=== PATIENT | female | born 1945 | race Caucasian/White ===

== ENCOUNTER 2018-09-30 16:59 | Emergency (ER) | payer MEDICARE, OTHER ==
[2018-09-30] MEDS ORDERED: Ketorolac 30 MG/ML SDV IM ONE (17:01)
[2018-09-30] MEDS ORDERED: HYDROmorphone 2 MG/ML SDV IM ONE (17:02)
--- NOTE | 2018-09-30 17:07 | EDM.PDOC ---
ED HPI GENERAL MEDICAL PROBLEM - General Time Seen by Provider: 09/30/18 17:00 Source of Information: Reports: Patient History Limitations: Reports: No Limitations - History of Present Illness INITIAL COMMENTS - FREE TEXT/NARRATIVE: According to patient, she has had sciatica for a long time. She take methocarbamol 1500 3 times daily for it. Apparently she could not fill it up on Monday, as she was in the court whole day. Her right leg pain has got worse over the week end. . She has been doing her sciatica exercises and not better. No tingling or numbness in the right lower extremity. Rates her pain at 9/10. No incontinence of urine or stool. No saddle numbness. Onset Date: 09/28/18 Location: Reports: Lower Extremity, Right Severity: Severe Improves with: Reports: None Worsens with: Reports: None Associated Symptoms: Denies: Confusion, Chest Pain, Cough, Diaphoresis, Fever/ Chills, Headaches, Nausea/Vomiting, Rash, Seizure, Shortness of Breath, Syncope , Weakness - Related Data Allergies Allergy/AdvReac Type Severity Reaction Status Date / Time No Known Allergies Allergy Verified 09/30/18 17:00 ED ROS GENERAL - Review of Systems Review Of Systems: See Below Constitutional: Denies: Fever, Chills HEENT: Denies: Rhinitis, Throat Pain, Throat Swelling Respiratory: Denies: Shortness of Breath, Pleuritic Chest Pain, Cough, Sputum Cardiovascular: Denies: Chest Pain, Lightheadedness GI/Abdominal: Denies: Abdominal Pain, Nausea, Vomiting Musculoskeletal: Reports: Leg Pain, Muscle Pain. Denies: Joint Pain, Joint Swelling, Muscle Stiffness Skin: Denies: Bruising, Pruritis, Rash ED EXAM, GENERAL - Physical Exam Exam: See Below Exam Limited By: No Limitations General Appearance: Alert, WD/WN, No Apparent Distress Eye Exam: Bilateral Eye: EOMI, PERRL Ears: Normal External Exam, Normal Canal, Hearing Grossly Normal, Normal TMs Ear Exam: Bilateral Ear: Auricle Normal, Canal Normal, TM normal Nose: Normal Inspection, Normal Mucosa, No Blood Throat/Mouth: Normal Inspection, Normal Lips, Normal Teeth, Normal Gums, Normal Oropharynx, Normal Voice, No Airway Compromise Head: Atraumatic, Normocephalic Neck: Normal Inspection, Supple, Non-Tender, Full Range of Motion Respiratory/Chest: No Respiratory Distress, Lungs Clear, Normal Breath Sounds, No Accessory Muscle Use, Chest Non-Tender Cardiovascular: Normal Peripheral Pulses, Regular Rate, Rhythm, No Edema, No Gallop, No JVD, No Murmur, No Rub GI/Abdominal: Normal Bowel Sounds, Soft, Non-Tender, No Organomegaly, No Distention, No Abnormal Bruit, No Mass Extremities: Other (right lower extremity: SLR is 60 degree. Tender over the lower buttock. no weknessinthe leg or foot. able to walk withwalker.) Neurological: Alert, Oriented, CN II-XII Intact, Normal Cognition, Normal Gait, Normal Reflexes, No Motor/Sensory Deficits Skin Exam: Warm Course - Vital Signs Text/Narrative:: Pt has not had her methocarbamol for past 2 days now and now having worsening right sciatic pain. Rates her pain at 9/10.No Neurological deficits. She did received toradol 30mg and dilaudid 1mg Im. Also I have given her methocarbamol 500mg 3 tabs 3 times daily # 15 tablets. advised her to go to pharmacy and refill her meds tomorrow. - Orders/Labs/Meds Orders: Active Orders 24 hr Category Date Time Status HYDROmorphone [Dilaudid] Med 09/30/18 17:02 Once 1 mg IM ONETIME ONE Ketorolac [Toradol] Med 09/30/18 17:01 Once 30 mg IM ONETIME ONE Departure - Departure Time of Disposition: 17:15 Disposition: Home, Self-Care 01 Condition: Fair Clinical Impression: Sciatica - Discharge Information *PRESCRIPTION DRUG MONITORING PROGRAM REVIEWED*: Not Applicable *COPY OF PRESCRIPTION DRUG MONITORING REPORT IN PATIENT TOSHIA: Not Applicable - Problem List & Annotations (1) Sciatica SNOMED Code(s): 93821454 Code(s): M54.30 - SCIATICA, UNSPECIFIED SIDE Status: Acute - Problem List Review Problem List Initiated/Reviewed/Updated: Yes - My Orders Last 24 Hours: My Active Orders 09/30/18 17:01 Ketorolac [Toradol] 30 mg IM ONETIME ONE 09/30/18 17:02 HYDROmorphone [Dilaudid] 1 mg IM ONETIME ONE - Assessment/Plan Last 24 Hours: My Active Orders 09/30/18 17:01 Ketorolac [Toradol] 30 mg IM ONETIME ONE 09/30/18 17:02 HYDROmorphone [Dilaudid] 1 mg IM ONETIME ONE Assessment:: Right sciatica Plan: Pt has not had her methocarbamol for past 2 days now and now having worsening right sciatic pain. Rates her pain at 9/10.No Neurological deficits. She did received toradol 30mg and dilaudid 1mg Im. Also I have given her methocarbamol 500mg 3 tabs 3 times daily # 15 tablets. advised her to go to pharmacy and refill her meds tomorrow.
[2018-09-30] MEDS ORDERED: Methocarbamol 500 MG Tab ONE (17:20)
== END 2018-09-30 17:35 | disposition home or self-care (01) ==
LOC: LB.ED 16:59
DX: M54.31 Sciatica, right side (principal)
CPT/HCPCS: 96372; 99283-25; A9270-GY; J1170; J1885

== ENCOUNTER 2018-10-14 16:47 | Emergency (ER) | payer MEDICARE, OTHER ==
[2018-10-14] MEDS ORDERED: Gabapentin 300 MG Cap PO ONE (16:50)
[2018-10-14] MEDS ORDERED: Gabapentin 300 MG Cap ONE (17:00)
--- NOTE | 2018-10-14 20:41 | ER ---
HISTORY OF PRESENT ILLNESS: A 73-year-old lady here with complaints of pain down the posterior aspect and lateral aspect of the right leg. She thinks it is sciatica-type pain. The patient tells me she has had this pain for a couple of weeks. She was diagnosed with shingles and has started on Valtrex, which she is taking t.i.d. She was initially for this same type of pain 2 weeks ago. She was given pain medicine I think Dilaudid and Toradol. She states it did not help. She has also been trying prednisone the last 3 days taking 40 mg a day. She does not feel this is helping much either. She has not had any falls or injuries recently and she denies any back pain. OBJECTIVE: GENERAL APPEARANCE: The patient is awake and alert. No obvious distress. VITAL SIGNS: Reviewed as listed. EXTREMITIES: Examining the patient's right leg reveals there is still some remnants of the shingles rash present on the lateral and lateral-posterior side of the right thigh radiating down to just below the knee on the posterior side. The skin in this area is just slightly tender with palpation. The patient feels most comfortable if she crosses her right leg over her left leg. She states that when she stands and walks, the pain can be quite severe. DIAGNOSIS: Neuralgia. I do believe, this is connected with her recent shingles outbreak. TREATMENT PLAN: Neurontin will be started. I will start her on 300 mg 1 capsule tonight, 1 capsule b.i.d. tomorrow, and then t.i.d. dosing giving her enough for 10 days. The patient is to continue with prednisone 1 more day and then stop it. I do want her to follow up in the clinic next week within a couple of days if she is not noticing significant improvement, if she is feeling significantly better, recheck should be towards the end of the week. Activity should be as tolerated. CRS/MODL /[id number]
== END 2018-10-14 17:06 | disposition home or self-care (01) ==
LOC: LB.ED 16:47
DX: M79.2 Neuralgia and neuritis, unspecified (principal); B02.9 Zoster without complications
CPT/HCPCS: 99283; A9270-GY

== ENCOUNTER 2018-10-23 11:09 | Observation (INO) | payer MEDICARE, OTHER ==
[2018-10-23] MEDS ORDERED: Sodium Chloride 0.9% 10 ML Syringe FLUSH PRN (11:41)
[2018-10-23] MEDS ORDERED: Morphine 2 MG/ML Syringe IVPUSH PRN (11:42)
[2018-10-23] MEDS ORDERED: Gabapentin 300 MG Cap PO PRN (11:43)
[2018-10-23] MEDS ORDERED: Methocarbamol 750 MG Tab PO PRN (11:43)
[2018-10-23] MEDS ORDERED: methylPREDNISolone Sodium Succinate 125 MG/2 ML SDV IVPUSH SCH (11:45)
[2018-10-23] MEDS ORDERED: Ondansetron 4 MG Tab.DIS PO PRN (11:49)
--- NOTE | 2018-10-23 11:49 | PCM.HP ---
H&P History of Present Illness - General Date of Service: 10/23/18 Admit Problem/Dx: Admission Diagnosis/Problem Admission Diagnosis/Problem Piriformis syndrome of right side Source of Information: Patient History Limitations: Reports: No Limitations - History of Present Illness Initial Comments - Free Text/Narative: is a 73yo F here for right leg pain. She has had severe pain for the past week and has been to the ER and placed on multiple medications without much improvement. She states the gabapentin may have helped but she is not sure as the pain continues. The pain is exacerbated by walking and movement of the right leg. She states it sometimes starts in the buttocks or feels like it shoots up from the lower leg. There are concerns if it is Sciatica vs Piriformis syndrome or Post herpetic neuralgia. Patient has been unable to be at home by herself as she cannot move or walk, she has had to crawl to get to the bathroom. She has been staying with a family member for the past few days without improvement. Her pain is not tolerable and worsening. She has become constipated and has not had a BM in the past few days. She has become nauseated as well. Onset of Symptoms: Reports: Gradual Duration of Symptoms: Reports: Day(s):, Getting Worse Location: Reports: Lower Extremity, Right Quality: Reports: Ache, Stabbing Severity: Severe Improves with: Reports: None Worsens with: Reports: Movement Context: Reports: Activity/Exercise Associated Symptoms: Reports: Nausea/Vomiting - Related Data Allergies/Adverse Reactions: Allergies Allergy/AdvReac Type Severity Reaction Status Date / Time Latex, Natural Rubber Allergy Hives Verified 10/20/18 17:50 Home Medications: Home Meds Colesevelam [Welchol] 625 mg PO DAILY 09/30/18 [History] Insulin Glargine,Hum.Rec.Anlog [Basaglar Kwikpen U-100] 35 units SUBCUT BID [History] Lisinopril 10 mg PO BID 09/30/18 [History] Methocarbamol 1 - 2 tab PO TID PRN 09/30/18 [History] amLODIPine Besylate [Amlodipine Besylate] 10 mg PO DAILY 09/30/18 [History] metFORMIN [Glucophage] 1,000 mg PO BIDMEALS 09/30/18 [History] Gabapentin [Neurontin] 2 cap PO TID PRN 10/20/18 [History] Ibuprofen 3 tab PO BID PRN 10/20/18 [History] Multivitamin [Daily Multiple Vitamin] 1 each PO DAILY 10/20/18 [History] Vit C/E/Zn/Coppr/Lutein/Zeaxan [Preservision Areds 2 Softgel] 1 each PO BID 11/06 [History] traMADol HCl [Tramadol HCl] 1 tab PO QID PRN 10/20/18 [History] Hydrocodone/Acetaminophen [Hydrocodon-Acetaminophn 10-325] 10 tab PO QID PRN 02/03 [History] Pregabalin [Lyrica] 150 mg PO TID 10/23/18 [History] Past Medical History HEENT History: Reports: Macular Degeneration Cardiovascular History: Reports: High Cholesterol, Hypertension Respiratory History: Reports: Other (See Below) Other Respiratory History: R lobectomy r/t breast Ca 2015 [employer] History: Reports: Neurological History: Reports: Other (See Below) Other Neuro History: Sciatica Endocrine/Metabolic History: Reports: IDDM Oncologic (Cancer) History: Reports: Breast, Lung, Other (See Below) Other Oncologic History: Left Mastectomy; Lobectomy - Infectious Disease History Infectious Disease History: Reports: Shingles - Past Surgical History Female Surgical History: Reports: Section Other Female Surgeries/Procedures: c/s x2 Endocrine Surgical History: Reports: None Social & Family History - Family History Family Medical History: Noncontributory - Caffeine Use Caffeine Use: Reports: None H&P Review of Systems - Review of Systems: Review Of Systems: ROS reveals no pertinent complaints other than HPI. Exam - Exam Exam: See Below - Exam General: Alert, Oriented, Cooperative HEENT: PERRLA, Conjunctiva Clear, EACs Clear, EOMI Neck: Supple, Trachea Midline Lungs: Clear to Auscultation, Normal Respiratory Effort Cardiovascular: Regular Rate, Regular Rhythm GI/Abdominal Exam: Normal Bowel Sounds Back Exam: Normal Inspection Extremities: Normal Inspection, Normal Range of Motion, Non-Tender, No Pedal Edema, Normal Capillary Refill Peripheral Pulses: 2+: Dorsalis Pedis (L), Dorsalis Pedis (R) Skin: Warm, Dry, Intact Neurological: Cranial Nerves Intact, Reflexes Equal Bilateral Neuro Extensive - Mental Status: Alert, Oriented x3, Normal Mood/Affect - Problem List (1) Neuralgia, postherpetic SNOMED Code(s): 6216788 ICD Code: B02.29 - OTHER POSTHERPETIC NERVOUS SYSTEM INVOLVEMENT Status: Acute Priority: High Current Visit: Yes (2) Sciatica SNOMED Code(s): 75858627 ICD Code: M54.30 - SCIATICA, UNSPECIFIED SIDE Status: Acute Priority: High Current Visit: Yes Qualifiers: Laterality: right Qualified Code(s): M54.31 - Sciatica, right side Problem List Initiated/Reviewed/Updated: Yes Orders Last 24hrs: Active Orders 24 hr Category Date Time Status Patient Status [ADT] Routine ADT 10/23/18 11:39 Ordered Up With Assistance [RC] ASDIRECTED Care 10/23/18 11:39 Ordered Vital Signs [RC] Q4H Care 10/23/18 11:39 Ordered Regular Diet [DIET] Diet 10/23/18 Dinner Ordered Colesevelam [Welchol] Med 10/24/18 08:00 Ordered 625 mg PO DAILY Gabapentin [Neurontin] Med 10/23/18 11:43 Ordered 2 cap PO TID PRN Insulin Glarg,Human.Rec.Analog [LantUS Solostar] Med 10/23/18 20:00 Ordered 35 units SUBCUT BID Lisinopril [Prinivil] Med 10/23/18 20:00 Ordered 10 mg PO BID Methocarbamol [Robaxin] Med 10/23/18 11:43 Ordered 1 - 2 tab PO TID PRN Morphine Med 10/23/18 11:42 Ordered 2 mg IVPUSH Q4H PRN Multivitamin [Daily Multiple Vitamin] Med 10/24/18 08:00 Ordered 1 each PO DAILY Polyethylene Glycol 3350 [MiraLAX] Med 10/23/18 11:45 Ordered 17 gm PO BID Pravastatin [Pravachol] Med 10/24/18 08:00 Ordered 20 mg PO DAILY Sodium Chloride 0.9% [Saline Flush] Med 10/23/18 11:41 Ordered 10 ml FLUSH ASDIRECTED PRN Vit C/E/Zn/Coppr/Lutein/Zeaxan [Preservision Areds 2 Med 10/23/18 20:00 Ordered Softgel] 1 each PO BID amLODIPine [Norvasc] Med 02/06/19 08:00 Ordered 10 mg PO DAILY metFORMIN [Glucophage] Med 10/23/18 17:00 Ordered 1,000 mg PO BIDMEALS methylPREDNISolone Sod Succ [Solu-MEDROL] Med 10/23/18 11:45 Ordered 125 mg IVPUSH Q12H Peripheral IV Insertion Adult [OM.PC] Routine Oth 10/23/18 11:41 Ordered Resuscitation Status Routine Resus Stat 10/23/18 11:39 Ordered Medication Orders Methylprednisolone Sodium Succinate (Solu-Medrol) 125 mg IVPUSH Q12H K[facility] Morphine Sulfate (Morphine) 2 mg IVPUSH Q4H PRN PRN Reason: Pain Polyethylene Glycol (Miralax) 17 gm PO BID K[facility] Sodium Chloride (Saline Flush) 10 ml FLUSH ASDIRECTED PRN PRN Reason: Keep Vein Open Assessment/Plan Comment:: MRI ordered to rule out pathological processes and concerns of sciatica vs piriformis syndrome vs other. Patient started on IV pain management at this time. Will order PT/OT evaluation.
[2018-10-23] MEDS: methylPREDNISolone Sodium Succinate 125 MG/2 ML SDV IVPUSH SCH ×2 (11:55→23:40)
[2018-10-23] MEDS: Morphine 2 MG/ML Syringe IVPUSH PRN ×4 (11:55→23:43)
[2018-10-23] MEDS: HYDROmorphone 2 MG/ML SDV ONE ×3 (12:40→13:52)
[2018-10-23] MEDS: HYDROmorphone 2 MG/ML Syringe IVPUSH PRN ×3 (12:40→21:10)
[2018-10-23] MEDS: Polyethylene Glycol 3350 Powder 17 GM Packet PO SCH ×2 (14:13→19:17)
[2018-10-23] MEDS ORDERED: HYDROmorphone 2 MG/ML SDV ONE ×2 (16:26→21:05)
[2018-10-23] MEDS ORDERED: metFORMIN 500 MG Tab**OWN MED PO SCH (17:00)
[2018-10-23] MEDS ORDERED: Insulin Detemir 100 Units/ML 3 ML Pen ONE (19:36)
[2018-10-23] MEDS ORDERED: metFORMIN 1,000 MG Tab ONE (19:36)
[2018-10-23] MEDS ORDERED: metFORMIN 1,000 MG Tab PO ONE (20:00)
[2018-10-23] MEDS ORDERED: Lisinopril 10 MG Tab PO ONE (20:00)
[2018-10-23] MEDS ORDERED: Non-Formulary Medication 1 Each (Vit C/E/Zn/Coppr/Lutein/Zeaxan [Preservision Areds 2 Soft PO SCH (20:00)
[2018-10-23] MEDS ORDERED: LISINOPRIL 10 MG PO SCH (20:00)
[2018-10-23] MEDS ORDERED: Insulin Glargine,Human Rec. Analog 100 Units/ML 3 ML Pen SUBCUT ONE (20:00)
[2018-10-23] MEDS ORDERED: INSULIN DETEMIR 100 UNIT/ML SUBCUT SCH (20:00)
[2018-10-24] MEDS: Morphine 2 MG/ML Syringe IVPUSH PRN ×2 (04:08→06:20)
[2018-10-24] MEDS ORDERED: AMLODIPINE 10 MG PO SCH (08:00)
[2018-10-24] MEDS ORDERED: MULTIVITAMIN PO SCH (08:00)
[2018-10-24] MEDS ORDERED: COLESEVELAM 625 MG PO SCH (08:00)
[2018-10-24] MEDS: Polyethylene Glycol 3350 Powder 17 GM Packet PO SCH (11:23)
[2018-10-24] MEDS ORDERED: LORazepam 1 MG Tab ONE (13:45)
[2018-10-24] MEDS ORDERED: Pregabalin 50 MG Cap PO SCH (14:00)
--- NOTE | 2018-10-24 17:10 | PCM.DCSUM1 ---
Discharge Summary - Hospital Course Free Text/Narrative:: Pt was admitted on 10/23/16for pain control, as she has had intractable right lower extremity pain.She has been placed on Dilaudid every 4 hrs and also getting hydrocodone, tramadol with morphine. On today morning visit patient claims that she has very minimal improvement in her pain. On today's visit, I did ask patient to describe the chronology of the pain symptom. She claims that about 3-4 wks ago she started to develop painful papulovesicular rash over the right lower extremity, which started around the lower aspect of her right buttock and spread over the posterior thigh and posterior aspect of the leg and also over the foot. She was seen and treated for shingles. the rash scabbed and stated to clear up. That is when she started to have severe shooting pain over the right lower extremity. The pain is sharp and electric like, radiates form the right buttock into the thigh and leg and resolves. simple things like movement of the extremity or some time clothing triggers the pain. Pain happens anytime of the day and night. last for few seconds and sometimes few minutes. feels tingly in the same areas of the limb. Pt was given gabapentin 200mg 3 times daily for few days and stopped. She did take Lyrica for 2 days and stopped on Monday as she did not notice any improvement in her pain. Her presentation and distribution is typical of postherpetic neuralgia asso with right S1 dermatome. Pt and family was reassured. Also today, she was able to walk with physical therapy about 60 feet using walker. I have clearly explained to patient that the pain might take 3-6 months to gradually improve or it might be permanent pain depending on the nerve regeneration. Discontinued all her pain meds. Have started her on lyrica 50mg 3 times daily for next 3 days and will increase it to 100mg 3 times daily. See the improvement. If pain not better in 2-3 weeks, might need to increase the dose. Meanwhile will discharge patient, as this can be done as outpatient. Family prefer to keep the patient in hospital, and have made decision to go on repsite care. will continue home meds. Brief History: Present iwith intractable right lower extremity pain. Kindly see H&P for details. Diagnosis: Stroke: No - Discharge Data Discharge Date: 10/24/18 (Admit to repsite [facility]) Discharge Disposition: Home, Self-Care 01 Condition: Good - Patient Summary/Data Consults: Consultations 10/23/18 16:32 Consult to Occupational Therapy [OT Evaluation and Treatment] [CONS] Routine Please Evaluate and Treat. OT Reason for Consult: ADL's This query below is only for informational purposes and is not editable. Admission Diagnosis/Problem: Piriformis syndrome of right side Consult to Physical Therapy [PT Evaluation and Treatment] [CONS] Routine Please Evaluate and Treat. PT Reason for Consult: Ambulation This query below is only for informational purposes and is not editable. Admission Diagnosis/Problem: Piriformis syndrome of right side - Patient Instructions Diet: Heart Healthy Diet Fluid Restriction: 1500 mL Activity: As Tolerated - Discharge Plan *PRESCRIPTION DRUG MONITORING PROGRAM REVIEWED*: Not Applicable *COPY OF PRESCRIPTION DRUG MONITORING REPORT IN PATIENT TOSHIA: Not Applicable Home Medications: Home Meds Colesevelam [Welchol] 625 mg PO DAILY 09/30/18 [History] Insulin Glargine,Hum.Rec.Anlog [Basaglar Kwikpen U-100] 35 units SUBCUT BID [History] Lisinopril 10 mg PO BID 09/30/18 [History] amLODIPine Besylate [Amlodipine Besylate] 10 mg PO DAILY 09/30/18 [History] metFORMIN [Glucophage] 1,000 mg PO BIDMEALS 09/30/18 [History] Multivitamin [Daily Multiple Vitamin] 1 each PO DAILY 10/20/18 [History] Vit C/E/Zn/Coppr/Lutein/Zeaxan [Preservision Areds 2 Softgel] 1 each PO BID 11/06 [History] Insulin Glargine,Hum.Rec.Anlog [Lantus Solostar] 35 unit SQ BEDTIME 10/23/18 [ History] Polyethylene Glycol 3350 [MiraLAX] 17 gm PO BID packet 10/24/18 [Rx] - Discharge Summary/Plan Comment DC Time >30 min.: Yes Discharge Summary/Plan Comment: Pt will be on respite care. Kindly use this notes as admission note for respite care admission. - General Info Date of Service: 10/24/18 Functional Status: Reports: Pain Controlled, Tolerating Diet, Ambulating, Urinating, Incentive Spirometry - Review of Systems General: Denies: Fever, Weakness, Fatigue HEENT: Denies: Sinus Congestion, Rhinitis Pulmonary: Denies: Shortness of Breath, Cough, Sputum Cardiovascular: Denies: Chest Pain, Palpitations Gastrointestinal: Denies: Nausea, Vomiting Genitourinary: Denies: Dysuria, Frequency Musculoskeletal: Reports: Leg Pain. Denies: Joint Pain, Joint Swelling Skin: Reports: Rash. Denies: Bruising, Pruritis Neurological: Denies: Confusion, Dizziness, Headache, Syncope - Patient Data Vitals - Most Recent: Last Vital Signs Temp 97.9 F 10/24/18 12:00 Pulse 84 10/24/18 12:00 Resp 18 10/24/18 12:00 BP 148/73 H 10/24/18 12:00 Pulse Ox 99 10/24/18 12:00 Weight - Most Recent: 82.645 kg Lab Results - Last 24 hrs: Laboratory Results - last 24 hr 10/23/18 10/23/18 10/24/18 Range/Units 16:52 18:17 08:13 POC Glucose 222 H 306 H 247 H (74-110) mg/dL 10/24/18 Range/Units 10:43 POC Glucose 180 H (74-110) mg/dL Med Orders - Current: Current Medications Amlodipine Besylate (Norvasc) 10 mg PO DAILY [facility] Last Admin: 10/24/18 11:23 Dose: 10 mg Hydromorphone HCl (Dilaudid) 2 mg IVPUSH Q4H PRN PRN Reason: Pain Last Admin: 10/23/18 21:10 Dose: 2 mg Insulin Detemir (Levemir) 35 unit SUBCUT BID [facility] Last Admin: 10/24/18 11:20 Dose: 35 units Lisinopril (Prinivil) 10 mg PO BID [facility] Last Admin: 10/24/18 11:21 Dose: 10 mg Metformin HCl (Glucophage) 1,000 mg PO BIDMEALS [facility] Last Admin: 10/24/18 08:30 Dose: 1,000 mg Methylprednisolone Sodium Succinate (Solu-Medrol) 125 mg IVPUSH Q12H [facility] Last Admin: 10/23/18 23:40 Dose: 125 mg Morphine Sulfate (Morphine) 2 mg IVPUSH Q2H PRN PRN Reason: Pain Last Admin: 10/24/18 06:20 Dose: 2 mg Colesevelam [Welchol (] 625 MgOwn Med) 625 mg PO DAILY [facility] Last Admin: 10/24/18 08:30 Dose: 625 mg Ondansetron HCl (Zofran Odt) 4 mg PO Q4H PRN PRN Reason: Nausea/Vomiting Polyethylene Glycol (Miralax) 17 gm PO BID [facility] Last Admin: 10/24/18 11:23 Dose: Not Given Pravastatin Sodium (Pravachol) 20 mg PO BEDTIME [facility] Pregabalin (Lyrica) 50 mg PO TID [facility] Last Admin: 10/24/18 13:57 Dose: 50 mg Sodium Chloride (Saline Flush) 10 ml FLUSH ASDIRECTED PRN PRN Reason: Keep Vein Open Discontinued Medications Gabapentin (Neurontin) mg PO TID PRN PRN Reason: Pain Hydromorphone HCl (Dilaudid) Confirm Administered Dose 2 mg .ROUTE .STK-MED ONE Stop: 10/23/18 12:38 Last Admin: 10/23/18 13:52 Dose: Not Given Hydromorphone HCl (Dilaudid) Confirm Administered Dose 2 mg .ROUTE .STK-MED ONE Stop: 10/23/18 16:27 Last Admin: 10/23/18 17:19 Dose: Not Given Hydromorphone HCl (Dilaudid) Confirm Administered Dose 2 mg .ROUTE .STK-MED ONE Stop: 10/23/18 21:06 Last Admin: 10/23/18 21:10 Dose: Not Given Insulin Detemir (Levemir) Confirm Administered Dose 300 unit .ROUTE .STK-MED ONE Stop: 10/23/18 19:37 Last Admin: 10/23/18 19:48 Dose: Not Given Insulin Glargine (Lantus Solostar) 0 units SUBCUT ONETIME ONE Stop: 10/23/18 20:01 Last Admin: 10/23/18 20:59 Dose: 35 units Lisinopril (Prinivil) 10 mg PO ONETIME ONE Stop: 10/23/18 20:01 Last Admin: 10/23/18 19:46 Dose: 10 mg Lorazepam (Ativan) Confirm Administered Dose 1 mg .ROUTE .STK-MED ONE Stop: 10/24/18 13:46 Last Admin: 10/24/18 13:57 Dose: 1 mg Metformin HCl (Glucophage) 1,000 mg PO ONETIME ONE Stop: 10/23/18 20:01 Last Admin: 10/23/18 19:46 Dose: 1,000 mg Metformin HCl (Glucophage) Confirm Administered Dose 1,000 mg .ROUTE .STK-MED ONE Stop: 10/23/18 19:37 Methocarbamol (Robaxin) mg PO TID PRN PRN Reason: Pain Non-Formulary Medication (Multivitamin [Daily Multiple Vitamin]) 1 each PO DAILY [facility] Non-Formulary Medication (Vit C/E/Zn/Coppr/Lutein/Zeaxan [Preservision Areds 2 Softgel]) 1 each PO BID K[facility]RON - Exam General: Reports: Alert, Oriented HEENT: Reports: Pupils Equal, Pupils Reactive, EOMI, Mucous Membr. Moist/[place] Neck: Reports: Supple Lungs: Reports: Clear to Auscultation, Normal Respiratory Effort Cardiovascular: Reports: Regular Rate, Regular Rhythm GI/Abdominal Exam: Normal Bowel Sounds, Soft, Non-Tender, No Organomegaly, No Distention, No Abnormal Bruit, No Mass, Pelvis Stable Extremities: Normal Inspection, Normal Range of Motion, Non-Tender, No Pedal Edema, Normal Capillary Refill Neurological: Reports: Other (right lower extremity:There arehealed small pinkish rash seen over the distribution of S1 dermatome.Incresed sensitivity over the posterior aspect of the thigh and leg to touch.)
[2018-10-24] MEDS ORDERED: Pravastatin 20 MG Tab PO SCH (20:00)
--- NOTE | 2018-10-26 10:52 | MR ---
DATE OF SERVICE: 10/23/2018 CLINICAL DATA: Pain Pelvis and right hip MRI: Vertebral protocol No marrow signal abnormality. No fracture. No evidence of avascular necrosis. 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 there is increased signal within the glenoid labral bilaterally consistent with labral degeneration. I do not see a definite labral tear. There is a small amount of fluid in both hip joints. The soft tissues are unremarkable. The bladder is fluid-filled and moderately distended. There is degenerative disc disease at multiple levels in the lower lumbar spine. There are degenerative changes involving the SI joints bilaterally. No other significant findings. MTDD
== END 2018-10-24 15:00 | disposition other institution (70) ==
LOC: LB.MRI 11:09 → UNDOADMOB 11:13 → LB.MS 11:13
PROVIDERS: ADMIT Family Medicine; ATTEND Family Medicine
DX: B02.29 Other postherpetic nervous system involvement (principal); G57.01 Lesion of sciatic nerve, right lower limb; M51.36 Other intervertebral disc degeneration, lumbar region; E78.00 Pure hypercholesterolemia, unspecified; E11.9 Type 2 diabetes mellitus without complications; I10 Essential (primary) hypertension; Z91.040 Latex allergy status; Z79.4 Long term (current) use of insulin; Z79.899 Other long term (current) drug therapy; Z98.890 Other specified postprocedural states
CPT/HCPCS: 73721-RT; 82962; 96374; 96375; 96376; A9270-GY; G0378; J1170; J2270; J2930

== ENCOUNTER 2018-10-24 12:49 | Inpatient (IN) | payer SELFPAY ==
[2018-10-24] MEDS ORDERED: traMADol 50 MG Tab PO PRN (17:05)
[2018-10-24] MEDS ORDERED: Insulin Glargine,Human Rec. Analog 100 Units/ML 3 ML Pen SUBCUT SCH (20:00)
[2018-10-24] MEDS: Lisinopril 10 MG Tab **OWN MED PO SCH (20:53)
[2018-10-24] MEDS: Lutein/Minerals/Vitamins A, C & E Tab PO SCH (20:53)
[2018-10-24] MEDS: PREGABALIN 50 MG PO SCH (20:53)
[2018-10-24] MEDS: INSULIN GLARGINE U SUBCUT SCH (20:55)
[2018-10-25] MEDS: amLODIPine 10 MG Tab **OWN MED PO SCH (07:38)
[2018-10-25] MEDS: PREGABALIN 50 MG PO SCH ×3 (07:39→19:54)
[2018-10-25] MEDS: Lisinopril 10 MG Tab **OWN MED PO SCH ×2 (07:40→19:50)
[2018-10-25] MEDS: COLESEVELAM 625 MG PO SCH (07:40)
[2018-10-25] MEDS: Lutein/Minerals/Vitamins A, C & E Tab PO SCH ×2 (07:42→19:55)
[2018-10-25] MEDS: INSULIN GLARGINE U SUBCUT SCH ×2 (07:42→19:55)
--- NOTE | 2018-10-25 11:42 | PCM.PN ---
- General Info Date of Service: 10/25/18 Subjective Update: This is a 73yo F here for continued neuropathic pain from her shingles causing a severe post-herpetic neuralgia of the S1 dermatome. Patient still has difficulty getting comfortable and is in Respite care for inability to care for herself due to inability to move well and do routine ADLs. Patient denies any chest pain, no shortness of breath or other concerns. Functional Status: Reports: Tolerating Diet, Other (Patient still has severe pain on weight bearing and positional movements). Denies: Ambulating - Review of Systems General: Reports: No Symptoms HEENT: Reports: No Symptoms Pulmonary: Reports: No Symptoms Cardiovascular: Reports: No Symptoms Gastrointestinal: Reports: No Symptoms Musculoskeletal: Reports: No Symptoms Skin: Reports: No Symptoms Neurological: Reports: Difficulty Walking Psychiatric: Reports: No Symptoms - Patient Data Vitals - Most Recent: Last Vital Signs Temp 36.3 C 10/25/18 08:00 Pulse 71 10/25/18 08:00 Resp 16 10/24/18 13:25 BP 134/80 10/25/18 08:00 Pulse Ox 98 10/25/18 08:00 Weight - Most Recent: 82.554 kg Lab Results Last 24 Hours: Laboratory Results - last 24 hr 10/24/18 10/25/18 Range/Units 16:09 06:37 POC Glucose 145 H 135 H (74-110) mg/dL Med Orders - Current: Current Medications Amlodipine Besylate (Norvasc) 10 mg PO DAILY [facility] Last Admin: 10/25/18 07:38 Dose: 10 mg Duloxetine HCl (Cymbalta) 30 mg PO DAILY [facility] Lisinopril (Prinivil) 10 mg PO BID [facility] Last Admin: 10/25/18 07:40 Dose: 10 mg Metformin HCl (Glucophage) 1,000 mg PO BIDMEALS [facility] Last Admin: 10/25/18 07:41 Dose: 1,000 mg Morphine Sulfate (Morphine) 15 mg PO BID PRN PRN Reason: pain Multivitamins/Minerals (Ocuvite) 1 each PO BID [facility] Last Admin: 10/25/18 07:42 Dose: 1 each Colesevelam (Welchol ) 625 Mg Tab Own Med 0 mg PO DAILY [facility] Last Admin: 10/25/18 07:40 Dose: 625 mg Insulin Glargine ( Basaglar) Kwikpen U- 100 Own Med 0 each SUBCUT BID [facility] Last Admin: 10/25/18 07:42 Dose: 1 each Pregabalin (Lyrica) 50 mg PO TID [facility] Stop: 10/27/18 14:01 Last Admin: 10/25/18 07:39 Dose: 50 mg Pregabalin (Lyrica) 100 mg PO TID [facility] - Exam General: Alert, Oriented, Cooperative HEENT: Pupils Equal, Pupils Reactive, EOMI Neck: Supple Lungs: Clear to Auscultation, Normal Respiratory Effort Cardiovascular: Regular Rate, Regular Rhythm Back Exam: Normal Inspection Extremities: Normal Inspection Peripheral Pulses: 2+: Dorsalis Pedis (L), Dorsalis Pedis (R) Skin: Warm, Dry, Intact - Problem List & Annotations (1) Neuralgia, postherpetic SNOMED Code(s): 0212220 Code(s): B02.29 - OTHER POSTHERPETIC NERVOUS SYSTEM INVOLVEMENT Status: Acute Priority: High Current Visit: Yes - Problem List Review Problem List Initiated/Reviewed/Updated: Yes - My Orders Last 24 Hours: My Active Orders 10/25/18 08:56 Consult to Occupational Therapy [OT Evaluation and Treatment] [CONS] Routine Consult to Physical Therapy [PT Evaluation and Treatment] [CONS] Routine 10/25/18 11:33 Morphine 15 mg PO BID PRN 10/26/18 08:00 DULoxetine [Cymbalta] 30 mg PO DAILY - Plan Plan:: Patient on Lyrica titration and placed on pain management temporarily for comfort. We will d/c pain meds at earliest possible time.
[2018-10-25] MEDS: DULoxetine 30 MG Cap**OWN MED PO SCH (11:58)
[2018-10-25] MEDS: MORPHINE 15 MG PO PRN ×2 (12:45→19:53)
[2018-10-26] MEDS ORDERED: CAPSAICIN TOP PRN (07:23)
[2018-10-26] MEDS: COLESEVELAM 625 MG PO SCH (08:00)
[2018-10-26] MEDS: DULoxetine 30 MG Cap**OWN MED PO SCH (08:01)
[2018-10-26] MEDS: amLODIPine 10 MG Tab **OWN MED PO SCH (08:01)
[2018-10-26] MEDS: PREGABALIN 50 MG PO SCH ×3 (08:02→20:20)
[2018-10-26] MEDS: Lisinopril 10 MG Tab **OWN MED PO SCH ×2 (08:03→20:15)
[2018-10-26] MEDS: INSULIN GLARGINE U SUBCUT SCH ×2 (08:03→20:21)
[2018-10-26] MEDS: Lutein/Minerals/Vitamins A, C & E Tab PO SCH ×2 (08:07→20:00)
--- NOTE | 2018-10-26 13:09 | PCM.SN ---
- Free Text/Narrative Note: Patient has improved symptoms. Discussed continue supportive care and management. Patient will continue current titration of Lyrica for neuralgia. Morphine only as needed.
[2018-10-26] MEDS: MORPHINE 15 MG PO PRN (13:30)
[2018-10-27] MEDS: MORPHINE 15 MG PO PRN ×2 (02:03→13:59)
[2018-10-27] MEDS: COLESEVELAM 625 MG PO SCH (07:50)
[2018-10-27] MEDS: DULoxetine 30 MG Cap**OWN MED PO SCH (07:51)
[2018-10-27] MEDS: amLODIPine 10 MG Tab **OWN MED PO SCH (07:53)
[2018-10-27] MEDS: Lutein/Minerals/Vitamins A, C & E Tab PO SCH ×2 (07:53→20:16)
[2018-10-27] MEDS: PREGABALIN 50 MG PO SCH ×3 (07:53→20:17)
[2018-10-27] MEDS: Lisinopril 10 MG Tab **OWN MED PO SCH ×2 (07:54→20:11)
[2018-10-27] MEDS: INSULIN GLARGINE U SUBCUT SCH ×2 (08:02→20:18)
[2018-10-27] MEDS ORDERED: Ibuprofen 600 MG Tab PO PRN (11:08)
[2018-10-27] MEDS: IBUPROFEN 200 MG PO PRN ×2 (12:14→20:54)
[2018-10-27] MEDS: POLYETHYLENE GLYCOL 17 GM PO PRN (20:20)
[2018-10-28] MEDS: DULoxetine 30 MG Cap**OWN MED PO SCH (07:46)
[2018-10-28] MEDS: COLESEVELAM 625 MG PO SCH (07:46)
[2018-10-28] MEDS: Lisinopril 10 MG Tab **OWN MED PO SCH ×2 (07:47→19:11)
[2018-10-28] MEDS: amLODIPine 10 MG Tab **OWN MED PO SCH (07:47)
[2018-10-28] MEDS: PREGABALIN 50 MG PO SCH ×3 (07:49→19:38)
[2018-10-28] MEDS: Lutein/Minerals/Vitamins A, C & E Tab PO SCH ×2 (07:51→19:10)
[2018-10-28] MEDS: MORPHINE 15 MG PO PRN ×2 (07:53→19:37)
[2018-10-28] MEDS: INSULIN GLARGINE U SUBCUT SCH ×2 (08:03→19:38)
[2018-10-28] MEDS: IBUPROFEN 200 MG PO PRN (19:39)
[2018-10-29] MEDS: IBUPROFEN 200 MG PO PRN ×2 (05:06→16:57)
[2018-10-29] MEDS: MORPHINE 15 MG PO PRN ×2 (08:04→20:20)
[2018-10-29] MEDS: Lisinopril 10 MG Tab **OWN MED PO SCH ×2 (08:04→20:21)
[2018-10-29] MEDS: amLODIPine 10 MG Tab **OWN MED PO SCH (08:05)
[2018-10-29] MEDS: COLESEVELAM 625 MG PO SCH (08:06)
[2018-10-29] MEDS: DULoxetine 30 MG Cap**OWN MED PO SCH (08:06)
[2018-10-29] MEDS: PREGABALIN 50 MG PO SCH ×3 (08:06→20:18)
[2018-10-29] MEDS: Lutein/Minerals/Vitamins A, C & E Tab PO SCH ×2 (08:08→20:18)
[2018-10-29] MEDS: INSULIN GLARGINE U SUBCUT SCH ×2 (08:09→20:19)
[2018-10-30] MEDS: INSULIN GLARGINE U SUBCUT SCH ×2 (07:56→20:28)
[2018-10-30] MEDS: DULoxetine 30 MG Cap**OWN MED PO SCH (08:00)
[2018-10-30] MEDS: COLESEVELAM 625 MG PO SCH (08:00)
[2018-10-30] MEDS: PREGABALIN 50 MG PO SCH ×3 (08:01→20:28)
[2018-10-30] MEDS: Lutein/Minerals/Vitamins A, C & E Tab PO SCH ×2 (08:02→20:31)
[2018-10-30] MEDS: amLODIPine 10 MG Tab **OWN MED PO SCH (08:02)
[2018-10-30] MEDS: Lisinopril 10 MG Tab **OWN MED PO SCH ×2 (08:02→20:28)
[2018-10-30] MEDS: IBUPROFEN 200 MG PO PRN (13:56)
[2018-10-30] MEDS: MORPHINE 15 MG PO PRN (17:16)
[2018-10-30] MEDS: POLYETHYLENE GLYCOL 17 GM PO PRN (17:17)
[2018-10-31] MEDS: IBUPROFEN 200 MG PO PRN (01:48)
[2018-10-31] MEDS: MORPHINE 15 MG PO PRN (05:53)
[2018-10-31] MEDS: COLESEVELAM 625 MG PO SCH (07:45)
[2018-10-31] MEDS: DULoxetine 30 MG Cap**OWN MED PO SCH (07:46)
[2018-10-31] MEDS: amLODIPine 10 MG Tab **OWN MED PO SCH (07:54)
[2018-10-31] MEDS: PREGABALIN 50 MG PO SCH (07:54)
[2018-10-31] MEDS: Lisinopril 10 MG Tab **OWN MED PO SCH (07:55)
[2018-10-31 07:56] VITALS: BP 156/72
[2018-10-31] MEDS: Lutein/Minerals/Vitamins A, C & E Tab PO SCH (08:00)
[2018-10-31] MEDS: INSULIN GLARGINE U SUBCUT SCH (08:03)
== END 2018-10-31 11:15 | disposition home or self-care (01) | DRG 74 ==
LOC: LB.MS 12:49 → UNDOADMIN 12:49 → LB.MS 13:26
PROVIDERS: ADMIT Family Medicine; ATTEND Family Medicine
DX: B02.29 Other postherpetic nervous system involvement (principal); Z75.5 Holiday relief care
CPT/HCPCS: 82962; A9270-GY

== ENCOUNTER 2021-07-16 09:18 | Emergency (ER) | payer MEDICARE, OTHER ==
--- NOTE | 2021-07-16 10:26 | EDM.PDOC ---
ED HPI GENERAL MEDICAL PROBLEM - General Chief Complaint: Respiratory Problem Stated Complaint: COUGH Time Seen by Provider: 07/16/21 10:05 Source of Information: Reports: Patient History Limitations: Reports: No Limitations - History of Present Illness INITIAL COMMENTS - FREE TEXT/NARRATIVE: 75-year-old female presents the ED complaining of a cough/wheeze. Patient had an acute onset of her symptoms starting on Monday. She describes the cough as a dry cough with a wheeze that on Monday became productive with yellow mucus. Patient states the cold air makes it worse especially when she walks her dog. Patient has tried Mucinex without relief. Patient did notice that humidity within her facemask does seem to help her cough. She describes a sensation of feeling it she needs to clear something from her chest. The first time patient has experienced any episodes similar to this. Is been going on for 6 days. Positive for headache secondary to the cough, stuffy nose with clear nasal discharge, pain in her ribs secondary to her cough, mild shortness of breath, patient was a smoker 30 years ago, patient has a lobectomy right upper lobe secondary to cancer. Negative for: Chest pain, trauma, syncope/near syncope, nausea vomiting, dizzy lightheaded, diarrhea constipation, blood in the stool, black tarry stool, bloating, changes to urine color smell frequency volume, no red swollen joints, no rashes. 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) (Mucinex) chest Pain Score (Numeric/FACES): 2 - Related Data Allergies Allergy/AdvReac Type Severity Reaction Status Date / Time Latex, Natural Rubber Allergy Mild Hives Verified 07/16/21 09:45 Home Meds: Home Meds Colesevelam [Welchol] 625 mg PO DAILY 09/30/18 [History] Insulin Glargine,Hum.Rec.Anlog [Basaglar Kwikpen U-100] 35 units SUBCUT BID 09/30/18 [History] Lisinopril 10 mg PO BID 09/30/18 [History] amLODIPine Besylate [Amlodipine Besylate] 10 mg PO DAILY 09/30/18 [History] metFORMIN [Glucophage] 1,000 mg PO BIDMEALS 09/30/18 [History] Multivitamin [Daily Multiple Vitamin] 1 each PO DAILY 10/20/18 [History] Vit C/E/Zn/Coppr/Lutein/Zeaxan [Preservision Areds 2 Softgel] 1 each PO BID 10/20/18 [History] Insulin Glargine,Hum.Rec.Anlog [Lantus Solostar] 35 unit SQ BEDTIME 10/23/18 [History] polyethylene glycoL 3350 [MiraLAX] 17 gm PO BID packet 10/24/18 [Rx] Albuterol/Ipratropium [Combivent Respimat] 4 gm IH TID PRN #1 aer.w.adap 07/16/21 [Rx] predniSONE 60 mg PO DAILY 5 Days #15 tab 07/16/21 [Rx] Past Medical History HEENT History: Reports: Macular Degeneration Cardiovascular History: Reports: High Cholesterol, Hypertension Respiratory History: Reports: Other (See Below) Other Respiratory History: R lobectomy 2016 r/t lung cancer Genitourinary History: Reports: 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: Musculoskeletal History: Reports: Other (See Below) Other Musculoskeletal History: 09/22/18 placed in OBS for severe lower back pain radiating to RLE Neurological History: Reports: Other (See Below) Other Neuro History: Sciatica Endocrine/Metabolic History: Reports: IDDM Oncologic (Cancer) History: Reports: Breast, Lung, Other (See Below) Other Oncologic History: Left Mastectomy (2005); Lobectomy (2015) - Infectious Disease History Infectious Disease History: Reports: Shingles - Past Surgical History Female Surgical History: Reports: Section Other Female Surgeries/Procedures: c/s x2 Endocrine Surgical History: Reports: None Musculoskeletal Surgical History: Reports: None Oncologic Surgical History: Reports: Lobectomy, Mastectomy Social & Family History - Family History Family Medical History: No Pertinent Family History - Tobacco Use Tobacco Use Status *Q: Former Tobacco User Used Tobacco, but Quit: Yes Month/Year Tobacco Last Used: 09/1989 - Caffeine Use Caffeine Use: Reports: Coffee Caffeine Use Comment: 2 cups a day ED ROS GENERAL - Review of Systems Review Of Systems: Comprehensive ROS is negative, except as noted in HPI. ED EXAM, GENERAL - Physical Exam Exam: See Below Free Text/Narrative:: 75-year-old female presented to the ED for cough/wheezing, patient found sitting in bay to on stretcher. Patient is no apparent distress. Occasional runs of coughing. Patient is alert and oriented 3/3, GCS 4 5 6. Speaking in full sentences, no obvious trauma Exam Limited By: No Limitations General Appearance: Alert, WD/WN, No Apparent Distress Eye Exam: Bilateral Eye: Conjunctival Injection (Negative for), EOMI, Normal Inspection, PERRL Ears: Normal External Exam, Normal Canal, Hearing Grossly Normal, Normal TMs Ear Exam: Bilateral Ear: Auricle Normal, Canal Normal, TM normal Nose: Normal Inspection, Normal Mucosa, No Blood, Clear Rhinorrhea Throat/Mouth: Normal Inspection, Normal Lips, Normal Teeth, Normal Gums, Normal Oropharynx, Normal Voice, No Airway Compromise Head: Atraumatic, Normocephalic Neck: Normal Inspection, Supple, Non-Tender, Full Range of Motion. No: Lymphadenopathy (R), Lymphadenopathy (L) Respiratory/Chest: Respiratory Distress (Minor), Wheezing (Wheezing heard in all lung clemente including where she had a lobectomy), Prolonged Expiration. No: Accessory Muscle Use, Retractions Cardiovascular: Normal Peripheral Pulses, Regular Rate, Rhythm, No Edema, No Gallop, No JVD, No Murmur, No Rub GI/Abdominal: Soft, Non-Tender Back Exam: Normal Inspection, Full Range of Motion. No: CVA Tenderness (R), CVA Tenderness (L) Extremities: Normal Inspection, Normal Range of Motion, Non-Tender, Normal Capillary Refill, No Pedal Edema Neurological: Alert, Oriented, Normal Cognition Psychiatric: Normal Affect, Normal Mood Skin Exam: Warm, Dry, Intact, Normal Color, No Rash Lymphatic: No Adenopathy Course - Vital Signs Last Recorded V/S: Last Vital Signs Temp 97.1 F 07/16/21 09:50 Pulse 77 07/16/21 09:50 Resp 18 07/16/21 09:50 BP 153/78 H 07/16/21 09:50 Pulse Ox 96 07/16/21 09:50 - Orders/Labs/Meds Labs: Laboratory Tests 07/16/21 07/16/21 07/16/21 Range/Units 10:18 10:18 10:20 WBC 6.0 (4.0-11.0) K/uL RBC 4.12 (3.80-5.80) M/uL Hgb 12.2 (11.5-16.5) g/dL Hct 36.2 L (37.0-47.0) % MCV 88 (76-96) fL MCH 29.6 (27.0-32.0) pg MCHC 33.7 (31.0-35.0) g/dL RDW 13.4 (11.0-16.0) % Plt Count 245 (150-500) K/uL MPV 9.0 (6.0-10.0) fL Neut % (Auto) 61.2 (45.0-70.0) % Lymph % (Auto) 23.1 (20.0-40.0) % [place] % (Auto) 11.7 H (3.0-10.0) % Eos % (Auto) 3.0 (1.0-5.0) % Baso % (Auto) 1.0 H (0.0-0.5) % Neut # (Auto) 3.65 (2.00-7.50) K/uL Lymph # (Auto) 1.38 L (1.50-4.00) K/uL [place] # (Auto) 0.70 (0.20-0.80) K/uL Eos # (Auto) 0.18 (0.04-0.40) K/uL Baso # (Auto) 0.06 (0.02-0.10) K/uL Troponin I < 0.017 (0.000-0.060) ng/mL SARS CoV-2 RNA Rapid NAHOMI Negative Meds: Medications Discontinued Medications Generic Name Dose Route Start Last Admin Trade Name Freq PRN Reason Stop Dose Admin Albuterol/Ipratropium 3 ml 07/16/21 11:24 07/16/21 11:39 Albuterol/Ipratropium 3.0-0.5 Mg/3 Ml Neb Soln NEB 07/16/21 11:25 3 ml Q2H ONE Administration Albuterol/Ipratropium Confirm 07/16/21 11:34 07/16/21 11:39 Albuterol/Ipratropium 3.0-0.5 Mg/3 Ml Neb Soln Administered 07/16/21 11:35 Not Given Dose 3 ml .ROUTE .STK-MED ONE Albuterol/Ipratropium Confirm 07/16/21 11:58 07/16/21 12:34 Albuterol/Ipratropium 3.0-0.5 Mg/3 Ml Neb Soln Administered 07/16/21 11:59 Not Given Dose 3 ml .ROUTE .STK-MED ONE Albuterol/Ipratropium 3 ml 07/16/21 11:55 07/16/21 12:34 Albuterol/Ipratropium 3.0-0.5 Mg/3 Ml Neb Soln NEB 07/16/21 11:56 3 ml Q2H ONE Administration Artificial Tears 0 ml 07/16/21 10:46 Polyvinyl Alcohol 1.4% Ophth Soln 15 Ml Bottle EYEBOTH Q1H PRN Dry Eyes Scopolamine 1.5 mg 07/16/21 10:45 Scopolamine 1.5 Mg Transdermal Patch TRDERM Q72H PRN Other Departure - Departure Time of Disposition: 12:07 Disposition: Home, Self-Care 01 Condition: Good Clinical Impression: Asthma exacerbation in COPD - Discharge Information *PRESCRIPTION DRUG MONITORING PROGRAM REVIEWED*: No *COPY OF PRESCRIPTION DRUG MONITORING REPORT IN PATIENT TOSHIA: No Prescriptions: Albuterol/Ipratropium [Combivent Respimat] 4 gm IH TID PRN #1 aer.w.adap PRN Reason: Shortness Of Breath predniSONE 60 mg PO DAILY 5 Days #15 tab Instructions: Ipratropium aerosol inhaler Referrals: Chester Lo MD [Primary Care Provider] - Forms: ED Department Discharge Additional Instructions: Monitor blood sugar while taking steroid treatment (for 5 days), expect levels to be higher than usual and administer insulin appropriately based on readings. Use inhaler when short of breath, wheezing, or as needed to improve respiratory symptoms. Sepsis Event Note (ED) - Evaluation Sepsis Screening Result: No Definite Risk - Focused Exam Vital Signs: Vital Signs Temp Pulse Resp BP Pulse Ox 07/16/21 09:50 97.1 F 77 18 153/78 H 96 - Assessment/Plan Assessment:: 75-year-old female with a of smoking some 30 years ago. Presents to the ED for evaluation of shortness of breath. Signs and symptoms are consistent with COPD exacerbation. A broad differential is considered including foreign body, COPD, viral induced reactive airway disease, pneumothorax, cardiac equivalent, allergic phenomena, pneumonia, bronchitis, etc. chest x-ray was negative for lobar consolidation or other lung pathology. Patient feels improved after the DuoNeb x2 interventions in the ED. There are no signs at this point of any serious etiologies including those mentioned above, especially acute coronary syndrome. I doubt this is ACS given the absence of EKG evidence and a negative troponin, the marked wheezing without rales. No indication for hospitalization at this time including no hypoxia, no marked increase in respiratory rate, minimal to no right retractions. Supportive outpatient management is therefore indicated. Given the lack of significant sputum production antibiotics were not indicated at this time. Advise close follow-up with primary care provider and return if increased wheezing, progressive shortness of breath, develops fever greater than 102. Plan: ABC, history, exam, labs, chest x-ray, DuoNeb x2, patient education/shared decision making, ambulatory prescription for 60 mg prednisone daily for 5 days, Combivent Respimat 3 times daily as needed for symptoms, all questions were answ ered to the patient's satisfaction, patient understood treatment plan and agreed to same, patient was discharged in stable condition, to follow-up with primary care provider.
[2021-07-16] MEDS ORDERED: Scopolamine 1.5 MG Transdermal Patch TRDERM PRN (10:45)
[2021-07-16] MEDS ORDERED: Polyvinyl Alcohol 1.4% Ophth Soln 15 ML Bottle EYEBOTH PRN (10:46)
--- NOTE | 2021-07-16 11:15 | CR ---
DATE OF SERVICE: 07/16/21 CLINICAL DATA: cough and wheezing PA AND LATERAL CHEST: No priors. The heart size is normal. There is calcification of the aortic arch. The patient is status post left mastectomy. There are surgical clips in the left axilla. There is a rounded density overlying the left lower lung which is probably a breast implant or possibly scarring. There is eventration of the right hemidiaphragm. There are mild interstitial changes in both lungs. The lungs are otherwise clear. No areas of consolidation. No pneumothorax. No pleural effusions. [id number] [facility]
[2021-07-16] MEDS ORDERED: Albuterol/Ipratropium 3.0-0.5 MG/3 ML Neb Soln NEB ONE ×2 (11:24→11:55)
[2021-07-16] MEDS ORDERED: Albuterol/Ipratropium 3.0-0.5 MG/3 ML Neb Soln ONE ×2 (11:34→11:58)
== END 2021-07-16 12:07 | disposition home or self-care (01) ==
LOC: LB.ED 09:18
DX: J44.1 Chronic obstructive pulmonary disease with (acute) exacerbation (principal); E78.00 Pure hypercholesterolemia, unspecified; I10 Essential (primary) hypertension; Z91.040 Latex allergy status; Z79.4 Long term (current) use of insulin; Z87.891 Personal history of nicotine dependence; Z20.822 Contact with and (suspected) exposure to COVID-19
CPT/HCPCS: 36415; 71046; 84484; 85025; 93005; 99285; U0002; J7620-GY

== ENCOUNTER 2024-03-10 07:51 | Emergency (ER) | payer MEDICARE, OTHER ==
[2024-03-10 08:36] LABS: BASOPHILS ABSOLUTE AUTO 0.04 K/uL (0.02-0.10); BASOPHILS PERCENT AUTO 0.6 % (0.0-0.5); EOSINOPHILS ABSOLUTE AUTO 0.09 K/uL (0.04-0.40); EOSINOPHILS PERCENT AUTO 1.4 % (1.0-5.0); HEMATOCRIT 34.7 % (37.0-47.0); HEMOGLOBIN 11.3 g/dL (11.5-16.5); LYMPHOCYTES ABSOLUTE AUTO 1.06 K/uL (1.50-4.00); LYMPHOCYTES PERCENT AUTO 16.9 % (20.0-40.0); MEAN CORPUSCULAR HEMOGLOBIN 27.7 pg (27.0-32.0); MEAN CORPUSCULAR HGB CONC 32.6 g/dL (31.0-35.0); MEAN CORPUSCULAR VOLUME 85 fL (76-96); MEAN PLATELET VOLUME 9.5 fL (6.0-10.0); MONOCYTES ABSOLUTE AUTO 0.39 K/uL (0.20-0.80); MONOCYTES PERCENT AUTO 6.2 % (3.0-10.0); NEUTROPHILS ABSOLUTE AUTO 4.68 K/uL (2.00-7.50); NEUTROPHILS PERCENT AUTO 74.9 % (45.0-70.0); PLATELET COUNT,PLT 232 K/uL (150-500); RED BLOOD CELL COUNT 4.08 M/uL (3.80-5.80); RED CELL DISTRIBUTION WIDTH 14.1 % (11.0-16.0); WHITE BLOOD CELL COUNT,WBC 6.3 K/uL (4.0-11.0)
[2024-03-10 08:53] LABS: ALBUMIN 3.5 g/dL (3.4-5.0); ANION GAP 13.8 mmol/L (5.0-15.0); BILIRUBIN TOTAL 0.4 mg/dL (0.0-1.0); BUN/CREATININE RATIO 15.6 (6-25); CALCIUM 8.4 mg/dL (8.5-10.1); CREATININE 0.9 mg/dL (0.55-1.02); EST CRCL DRUG DOSING (CG) 47.45 mL/min; POTASSIUM,K 3.8 mmol/L (3.5-5.1)
[2024-03-10 09:02] LABS: MAGNESIUM 1.7 mg/dL (1.8-2.4)
[2024-03-10 09:15] LABS: APPEARANCE,URINE CLEAR (CLEAR); BILIRUBIN,URINE NEGATIVE (NEGATIVE); COLOR,URINE YELLOW; GLUCOSE,URINE NEGATIVE (NEGATIVE); KETONES,URINE NEGATIVE (NEGATIVE); LEUKOCYTE ESTERASE,URINE NEGATIVE (NEGATIVE); NITRITE,URINE NEGATIVE (NEGATIVE); OCCULT BLOOD,URINE NEGATIVE (NEGATIVE); PROTEIN,URINE 30 mg/dL (NEGATIVE); UROBILINOGEN,URINE 0.2 E.U./dL (0.2-1.0)
[2024-03-10 09:26] LABS: EPITHELIAL CELLS,URINE RARE /HPF; RBC,URINE 0-5 /HPF; WBC,URINE 0-5 /HPF
[2024-03-10 10:15] VITALS: BP 169/64; PULSE 55
[2024-03-10] MEDS: Sodium Chloride 0.9% 500 ML IV ONE (10:31)
[2024-03-10] MEDS ORDERED: Lisinopril 10 MG Tab ONE (10:35)
[2024-03-10] MEDS ORDERED: amLODIPine 10 MG Tab ONE (10:36)
[2024-03-10] MEDS: Lisinopril 10 MG Tab PO ONE (10:38)
[2024-03-10] MEDS: amLODIPine 5 MG Tab PO ONE (10:38)
== END 2024-03-10 12:00 | disposition home or self-care (01) ==
LOC: LB.ED 07:51
DX: R06.09 Other forms of dyspnea (principal); E83.42 Hypomagnesemia; I10 Essential (primary) hypertension; E78.00 Pure hypercholesterolemia, unspecified; E11.9 Type 2 diabetes mellitus without complications; Z79.899 Other long term (current) drug therapy; Z91.040 Latex allergy status
CPT/HCPCS: 36415; 71045; 80053; 81001; 83735; 83880; 84484; 85025; 93005; 93010; 96360; 99284; 99285-25; A9270-GY; J7040